=== PATIENT | female | born 1990 | race Caucasian/White ===

== ENCOUNTER 2016-10-24 17:07 | Emergency (ER) | payer OTHER ==
--- NOTE | 2016-10-24 17:29 | PDOC ---
Rapid Medical Evaluation Time Seen by Provider: 10/24/16 17:27 Medical Evaluation: Allergies Allergy/AdvReac Type Severity Reaction Status Date / Time azithromycin [From Zithromax] Allergy Hives Verified 12/05/14 13:17 ciprofloxacin [From Cipro] Allergy Rash Verified 12/05/14 13:17 ciprofloxacin HCl Allergy Rash Verified 12/05/14 13:17 [From Cipro] erythromycin base Allergy Hives Verified 12/05/14 13:17 levofloxacin [From Levaquin] Allergy Verified 12/05/14 13:17 pantoprazole sodium Allergy Hives Verified 12/05/14 13:17 [From Protonix] Penicillins Allergy Hives Verified 12/05/14 13:17 sulfamethoxazole Allergy Hives Verified 12/05/14 13:17 [From Bactrim] tetracycline Allergy Rash Verified 12/05/14 13:17 trimethoprim [From Bactrim] Allergy Hives Verified 12/05/14 13:17 10/24/16 17:27 26 yo F c/o sharp intermittent epigastric cp. Pain exacerbated on deep inspiration, eating and drinking. Pt has a h/o GERD. States it feels different. No recent travels.
[2016-10-24 17:30] VITALS: BMI 29.6
--- NOTE | 2016-10-24 19:26 | PDOC ---
*Physical Exam - Vital Signs Last Vital Signs Temp Pulse Resp BP Pulse Ox 97.9 F 91 H 18 126/73 99 10/24/16 17:27 10/24/16 17:27 10/24/16 17:27 10/24/16 17:27 10/24/16 17:27 Medical Decision Making - Medical Decision Making 10/24/16 19:26 agree with care from DAKOTA Willingham *DC/Admit/Observation/Transfer Diagnosis at time of Disposition: Cough - Referrals Referrals: Hari Welsh [Primary Care Provider] - - Patient Instructions Printed Discharge Instructions: DI for Cough -- Adult Additional Instructions: You can take NyQuil tonight as discussed If this does not get better, follow-up with your doctor later this week You should quit smoking, this is not good for your asthma and then make you sicker Return to the ER if short of breath, fever or getting worse
--- NOTE | 2016-10-24 19:33 | PDOC ---
History of Present Illness - General Chief Complaint: Chest Pain Stated Complaint: CHEST PAIN Time Seen by Provider: 10/24/16 17:27 History Source: Patient Exam Limitations: No Limitations - History of Present Illness Initial Comments: 10/24/16 19:38 Chief complaint: Chest pain Patient 26-year-old female with a history of asthma, GERD states that she's had cough and chest pain for 2 days. No fever. Patient is using her asthma meds at home. Not short of breath and is able to speak clearly. Patient states every time it she coughs her chest hurts. GENERAL/CONSTITUTIONAL: No fever, weakness. dizziness HEAD, EYES, EARS, NOSE AND THROAT: No change in vision. No ear pain or discharge. No sore throat. CARDIOVASCULAR: +chest pain RESPIRATORY: No shortness of breath +cough GASTROINTESTINAL: No pain, nausea, vomiting, diarrhea or constipation GENITOURINARY: No dysuria MUSCULOSKELETAL: No neck or back pain SKIN: No rash NEUROLOGIC: No headache, vertigo, loss of consciousness, or loss of sensation. GENERAL: The patient is awake, alert, and fully oriented, in no acute distress. HEAD: Normal with no signs of trauma. EYES: Pupils equal, round and reactive to light, sclera anicteric, conjunctiva clear. ENT: pharynx: no erythema, no exudate, uvula midline NECK: supple CHEST: clear, + lower sternal tender, rr ABD: soft, nontender EXTREMITIES: Normal range of motion, no edema. NEUROLOGICAL: Normal speech, normal gait. SKIN: Warm, Dry Past History - Past Medical History Allergies/Adverse Reactions: Allergies Allergy/AdvReac Type Severity Reaction Status Date / Time azithromycin [From Zithromax] Allergy Hives Verified 10/24/16 17:31 ciprofloxacin [From Cipro] Allergy Rash Verified 10/24/16 17:31 ciprofloxacin HCl Allergy Rash Verified 10/24/16 17:31 [From Cipro] erythromycin base Allergy Hives Verified 10/24/16 17:31 levofloxacin [From Levaquin] Allergy Verified 10/24/16 17:31 pantoprazole sodium Allergy Hives Verified 10/24/16 17:31 [From Protonix] Penicillins Allergy Hives Verified 10/24/16 17:31 sulfamethoxazole Allergy Hives Verified 10/24/16 17:31 [From Bactrim] tetracycline Allergy Rash Verified 10/24/16 17:31 trimethoprim [From Bactrim] Allergy Hives Verified 10/24/16 17:31 Home Medications: Ambulatory Orders Albuterol Sulfate [Proair Respiclick] 90 mcg IH DAILY 11/16/15 Albuterol Sulfate [Ventolin -] 2 mg PO TID 11/16/15 Budesonide/Formeterol Fumarate [SYMBICORT 160/4.5mcg -] 1 inh PO BID 11/16/15 Buspirone HCl [Buspar -] 20 mg PO TID 10/24/16 Ibuprofen/Famotidine [Duexis 800-26.6 mg Tablet] 1 each PO DAILY 10/24/16 Lurasidone HCl [Latuda] 20 mg PO DAILY 10/24/16 Oxycodone HCl/Acetaminophen [Percocet 10-325 mg Tablet] 1 each PO TID 10/24/16 Oxycodone Sr [Oxycontin] 20 mg PO HS 10/24/16 Asthma: Yes Disorders: Yes (GERD) Psychiatric Problems: Yes (ANXIETY) - Immunization History Immunization Up to Date: Yes - Psycho/Social/Smoking Cessation Hx Anxiety: No Suicidal Ideation: No Smoking History: Current some day smoker Have you smoked in the past 12 months: Yes Number of Cigarettes Smoked Daily: 1 Information on smoking cessation initiated: No Hx Alcohol Use: No Drug/Substance Use Hx: No Substance Use Type: None *Physical Exam - Vital Signs Last Vital Signs Temp Pulse Resp BP Pulse Ox 97.9 F 91 H 18 126/73 99 10/24/16 17:27 10/24/16 17:27 10/24/16 17:27 10/24/16 17:27 10/24/16 17:27 Medical Decision Making - Medical Decision Making 10/24/16 19:41 Patient with history of asthma, using her inhalers at home, states they're not working, patient does not have wheezing in the ER, she's not hypoxic, or wheezing, pain is consistent with coughing and muscular pain. Patient is in no distress and has pain with coughing and is concerned regarding whether she has bronchitis or pneumonia. We'll get a chest x-ray and reassess. No labs are indicated. 10/24/16 20:55 Patient was sleeping comfortably, no respiratory distress, chest x-ray is negative, patient will be discharged home, states she will take NyQuil tonight and then she'll follow-up with her doctor if any other problems *DC/Admit/Observation/Transfer Diagnosis at time of Disposition: Cough - Discharge Dispostion Disposition: HOME Condition at time of disposition: Stable Admit: No - Patient Instructions Printed Discharge Instructions: DI for Cough -- Adult Additional Instructions: You can take NyQuil tonight as discussed If this does not get better, follow-up with your doctor later this week You should quit smoking, this is not good for your asthma and then make you sicker Return to the ER if short of breath, fever or getting worse
[2016-10-24 21:04] VITALS: BP 108/67; PULSE 88; TEMP 98.7
--- NOTE | 2016-10-25 14:10 | EKG ---
Test Reason : Blood Pressure : / mmHG Vent. Rate : 087 BPM Atrial Rate : 087 BPM P-R Int : 122 ms QRS Dur : 088 ms QT Int : 366 ms P-R-T Axes : 063 059 028 degrees QTc Int : 440 ms NORMAL SINUS RHYTHM WITH SINUS ARRHYTHMIA NORMAL ECG WHEN COMPARED WITH ECG OF 16-NOV-2015 15:55, NO SIGNIFICANT CHANGE WAS FOUND Confirmed by SULEIMAN MARR MD ([id number]) on 10/25/2016 2:10:29 PM Referred By: Confirmed By:SULEIMAN MARR MD
== END 2016-10-24 21:04 | disposition home or self-care (01) ==
LOC: JER 17:07
DX: R05 Cough (principal); J45.909 Unspecified asthma, uncomplicated; K21.9 Gastro-esophageal reflux disease without esophagitis; F41.9 Anxiety disorder, unspecified
CPT/HCPCS: 71020-TC; 84703; 93005; 93010; 99282-25

== ENCOUNTER 2017-09-04 08:59 | Inpatient (IN) | payer OTHER ==
[2017-09-04 09:11] VITALS: BMI 28.3
--- NOTE | 2017-09-04 10:24 | PDOC ---
History of Present Illness - General History Source: Patient Exam Limitations: No Limitations - History of Present Illness Initial Comments: 09/04/17 11:06 The patient is a 27 year old female with a significant PMH of spinal arthritis, neurofibromatosis, and duplicated ureter s/p multiple kidney infections who presents to the emergency department with left sided back pain and left side abdominal pain beginning approximately 5 days ago. She describes her back pain as localized in the lower region with associated intermittent spasms, which is aggravated by movement and alleviated by lying down. The patient also notes slight left sided abdominal pain at presentation. She reports taking 3 percocets a day regularly which has not relieved this episode of back pain. She notes her last percocet was about 6 hours ago. The patient notes she cannot take NSAIDS within the next 9 days as she is receiving a biopsy of a left breast mass diagnosed by mammography and US. She reports a family history of cancer (unspecified). The patient denies chest pain, shortness of breath, headache and dizziness. Denies fever, chills, nausea, vomit, diarrhea and constipation. Denies dysuria, frequency, urgency and hematuria. Allergies: Penicillins, Amoxicillin, Azithromycin, Zithromax, Ciprofloxacin, Tetracycline, Protonix, Bactrim, Levaquin. Past surgical history: Breast mass biopsies. Social history: Current some day smoker. Everyday percocet use (3/day for 6 years, prescribed). No reported alcohol use. PCP: Dr. Welsh <Abhi Hill - Last Filed: 09/04/17 16:31> <Malachi Verduzco - Last Filed: 09/04/17 16:43> - General Chief Complaint: Pain Stated Complaint: FLANK PAIN Time Seen by Provider: 09/04/17 10:01 Past History <Abhi Hill - Last Filed: 09/04/17 16:31> - Past Medical History Asthma: Yes COPD: No Disorders: Yes (GERD) Psychiatric Problems: Yes (ANXIETY) Other medical history: MIGRAINES, SPINAL ARTHRITIS, L SIDE DOUBLE URETER., NEUROFIBROMATOSIS - Immunization History Immunization Up to Date: Yes - Suicide/Smoking/Psychosocial Hx Smoking History: Current some day smoker Have you smoked in the past 12 months: Yes Number of Cigarettes Smoked Daily: 3 Information on smoking cessation initiated: No Hx Alcohol Use: No Drug/Substance Use Hx: No Substance Use Type: None <Malachi Verduzco - Last Filed: 09/04/17 16:43> - Past Medical History Allergies/Adverse Reactions: Allergies Allergy/AdvReac Type Severity Reaction Status Date / Time azithromycin [From Zithromax] Allergy Hives Verified 09/04/17 09:12 ciprofloxacin [From Cipro] Allergy Rash Verified 09/04/17 09:12 ciprofloxacin HCl Allergy Rash Verified 09/04/17 09:12 [From Cipro] erythromycin base Allergy Hives Verified 09/04/17 09:12 levofloxacin [From Levaquin] Allergy Verified 09/04/17 09:12 pantoprazole sodium Allergy Hives Verified 09/04/17 09:12 [From Protonix] Penicillins Allergy Hives Verified 09/04/17 09:12 sulfamethoxazole Allergy Hives Verified 09/04/17 09:12 [From Bactrim] tetracycline Allergy Rash Verified 09/04/17 09:12 trimethoprim [From Bactrim] Allergy Hives Verified 09/04/17 09:12 ceftriaxone AdvReac Rash Verified 09/04/17 16:07 Home Medications: Ambulatory Orders Albuterol Sulfate [Ventolin -] 2 mg PO TID 11/16/15 Oxycodone HCl/Acetaminophen [Percocet 10-325 mg Tablet] 1 each PO TID 10/24/16 Baclofen 10 mg PO DAILY 09/04/17 Review of Systems - Review of Systems Able to Perform ROS?: Yes Comments:: 09/04/17 11:07 CONSTITUTIONAL: No fever, no chills, no fatigue EYES: No visual changes ENT: No ear pain, no sore throat CARDIOVASCULAR: No chest pain, no palpitations RESPIRATORY: No cough, no SOB GI: (+) Abdominal pain. no nausea, no vomiting, no constipation, no diarrhea GENITOURINARY: No dysuria, no frequency, no hematuria MUSKULOSKELETAL: (+) Left sided back pain. no joint pain, no myalgias SKIN: No rash NEURO: No headache <Abhi Hill - Last Filed: 09/04/17 16:31> *Physical Exam - Vital Signs Last Vital Signs Temp Pulse Resp BP Pulse Ox 98.2 F 110 H 20 140/73 98 09/04/17 09:03 09/04/17 09:03 09/04/17 09:03 09/04/17 09:03 09/04/17 09:03 - Physical Exam Comments: 09/04/17 16:31 CONSTITUTIONAL: Well-appearing; well-nourished; in no apparent distress HEAD: Normocephalic; atraumatic EYES: PERRL; EOM intact ENMT: External appears normal; normal oropharynx NECK: Supple; non-tender; no cervical lymphadenopathy CARD: Normal S1, S2; no murmurs, rubs, or gallops RESP: Normal chest excursion with respiration; breath sounds clear and equal bilaterally; no wheezes, rhonchi, or rales ABD: Soft, non-distended; non-tender; no palpable organomegaly, no palpable hernias BACK: (+) Left sided CVA tenderness EXT: Normal ROM in all four extremities; non-tender to palpation; distal pulses intact SKIN: Warm, dry, no rash NEURO: No focal neurological deficiencies. <Abhi Hill - Last Filed: 09/04/17 16:31> - Vital Signs Last Vital Signs Temp Pulse Resp BP Pulse Ox 98.2 F 110 H 20 140/73 98 09/04/17 09:03 09/04/17 09:03 09/04/17 09:03 09/04/17 09:03 09/04/17 09:03 <Malachi Verduzco - Last Filed: 09/04/17 16:43> ED Treatment Course - LABORATORY CBC & Chemistry Diagram: 09/04/17 11:15 09/04/17 11:15 - ADDITIONAL ORDERS Additional order review: Laboratory Results 09/04/17 10:14 Urine Color Yellow Urine Appearance Clear Urine pH 5.0 Ur Specific [place] 1.020 Urine Protein Negative Urine Glucose (UA) Negative Urine Ketones Negative Urine Blood 1+ H Urine Nitrite Negative Urine Bilirubin Negative Urine Urobilinogen Negative Ur Leukocyte Esterase 2+ H D Urine WBC (Auto) 27 Urine RBC (Auto) 5 Ur Epithelial Cells Rare Urine Mucus Rare Urine HCG, Qual Negative <Abhi Hill - Last Filed: 09/04/17 16:31> - LABORATORY CBC & Chemistry Diagram: 09/04/17 11:15 09/04/17 11:15 <Malachi Verduzco - Last Filed: 09/04/17 16:43> Medical Decision Making - Medical Decision Making 09/04/17 15:30 The patient developed LUE puritis and erythema immediately upon administration of Ceftriaxone. 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 In the ER, patient is awake and alert, afebrile, with significant left CVA tenderness to percussion. CBC reveals mild leukocytosis with normal differential. CMP is unremarkable. Urinalysis reveals 27 WBCs per high-power field with [address] that and pelvis reveals bilateral intrarenal stones, mild dilation of proximal left ureter without distally obstructing stone and left perinephric stranding. I suspect clinical pyelonephritis. Given patient's multiple ALLERGIES, ceftriaxone was administered. Upon completion of medication , patient developed mild pruritus to the left arm without any respiratory symptoms. Benadryl was administered. Patient will require admission for IV antibiotics due to multiple antibiotic ALLERGIES and parenteral pain control. <Malachi Verduzco - Last Filed: 09/04/17 16:43> *DC/Admit/Observation/Transfer - Attestations Scribe Attestion: 09/04/17 11:07 Documentation prepared by Abhi Hill, acting as medical office representative for Malachi Verduzco MD. <Abhi Hill - Last Filed: 09/04/17 16:31> - Discharge Dispostion Admit: Yes <Malachi Verduzco - Last Filed: 09/04/17 16:43> Diagnosis at time of Disposition: Pyelonephritis - Discharge Dispostion Condition at time of disposition: Fair - Referrals Referrals: Hari Welsh [Primary Care Provider] - - Patient Instructions - Post Discharge Activity
[2017-09-04 10:43] LABS: URINE APPEARANCE CLEAR; URINE BILIRUBIN NEGATIVE (NEGATIVE); URINE BLOOD 1+ (NEGATIVE); URINE COLOR YELLOW; URINE GLUCOSE (UA) NEGATIVE (NEGATIVE); URINE KETONE NEGATIVE (NEGATIVE); URINE NITRITE NEGATIVE (NEGATIVE); URINE PROTEIN NEGATIVE (NEGATIVE); URINE UROBILINOGEN NEGATIVE mg/dL (0.2-1.0)
[2017-09-04 10:44] LABS: HCG,QUALITATIVE URINE NEGATIVE
[2017-09-04 10:46] LABS: URINE LEUK ESTERASE 2+ (NEGATIVE)
[2017-09-04 10:49] LABS: EPI CELLS RARE /HPF (FEW); URINE MUCUS RARE
[2017-09-04] MEDS ORDERED: morphine CARPU-JECT 4 MG/1 ML DISP.SYRIN IVPUSH ONE (10:53)
[2017-09-04] MEDS ORDERED: SODIUM CHLORIDE 1,000 ML IV STA (10:53)
[2017-09-04] MEDS ORDERED: morphine CARPU-JECT 10 MG/1 ML DISP.SYRIN ONE ×2 (11:17→15:11)
[2017-09-04 11:25] LABS: BASO % 0.2 % (0-2.0); EOS % 0.4 % (0-4.5); HEMATOCRIT 46.1 % (32.4-45.2); HEMOGLOBIN 14.8 GM/dL (10.7-15.3); LYMPH % 15.8 % (8-40); MCHC 32.2 g/dl (32.0-36.0); MEAN CELL VOLUME 90.1 fl (80-96); MEAN PLT VOLUME 8.7 fl (7.5-11.1); MONO % 13.2 % (3.8-10.2); NEUT % 70.4 % (42.8-82.8); PLATELET COUNT 242 K/MM3 (134-434); RBC 5.12 M/mm3 (3.60-5.2); RDW 13.5 % (11.6-15.6)
[2017-09-04 11:51] LABS: ALK PHOS 78 U/L (45-117); ANION GAP 5 (8-16); BILIRUBIN,TOTAL 0.5 mg/dL (0.2-1.0); BLOOD UREA NITROGEN 12 mg/dL (7-18); CALCIUM 9.3 mg/dL (8.5-10.1); CHLORIDE 102 mmol/L (98-107); CO2 28 mmol/L (21-32); CREATININE 0.9 mg/dL (0.55-1.02); GLUCOSE,RANDOM 78 mg/dL (74-106); POTASSIUM 4.9 mmol/L (3.5-5.1); SGOT/AST 7 U/L (15-37); SGPT/ALT 17 U/L (12-78); SODIUM 135 mmol/L (136-145); TOT PROT 7.8 g/dl (6.4-8.2)
[2017-09-04] MEDS ORDERED: CEFTRIAXONE 1 GM in DEXTROSE 5%-WATER - 50 ML IVPB ONE (14:55)
[2017-09-04] MEDS ORDERED: morphine CARPU-JECT 2 MG/1 ML DISP.SYRIN IVPUSH ONE (14:57)
[2017-09-04] MEDS ORDERED: EPINEPHrine/PF 1 MG/1 ML (1:1,000) AMPULE ONE (14:59)
[2017-09-04] MEDS ORDERED: methylPREDNISolone NA SUCC 125 MG/2 ML VIAL ONE (15:00)
[2017-09-04] MEDS ORDERED: CEFTRIAXONE 1 GM/50 ML BAG ONE (15:00)
--- NOTE | 2017-09-04 16:29 | HP ---
Admitting History and Physical - Primary Care Physician PCP: Hari Welsh - Admission Chief Complaint: Left flank pain History of Present Illness: HPI This is a 27 year old female with PMHx of spinal arthritis, neurofibromatosis, and duplicated ureter s/p multiple kidney infections who presented to the ED with left side back pain referring to abdomen x 5 days worsen with movement. Normally she takes 3 percocets daily for above medical issues and this did not alleviate the pain. Of note: she cannot take NSAIDs as she is scheduled for a left breast biopsy in the next 9 days. Currently, denies chest pain, sob. Still has L flank pain with movement, no fevers, no nausea. In ED given ceftriaxone, within 5 min (per pt) LUE red with hives, given benadryl and hives resolved, denies sob difficulty breathing History Source: Patient Limitations to Obtaining History: No Limitations - Past Medical History Rheumatology: Yes: Other (spinal arthritis, neurofibromatosis) - Smoking History Smoking history: Current some day smoker Have you smoked in the past 12 months: Yes Aproximately how many cigarettes per day: 3 - Alcohol/Substance Use Hx Alcohol Use: No History of Substance Use: reports: None - Social History Usual Living Arrangement: Yes: With Parent ADL: Independent Home Medications - Allergies Allergies/Adverse Reactions: Allergies Allergy/AdvReac Type Severity Reaction Status Date / Time azithromycin [From Zithromax] Allergy Hives Verified 09/04/17 09:12 ciprofloxacin [From Cipro] Allergy Rash Verified 09/04/17 09:12 ciprofloxacin HCl Allergy Rash Verified 09/04/17 09:12 [From Cipro] erythromycin base Allergy Hives Verified 09/04/17 09:12 levofloxacin [From Levaquin] Allergy Verified 09/04/17 09:12 pantoprazole sodium Allergy Hives Verified 09/04/17 09:12 [From Protonix] Penicillins Allergy Hives Verified 09/04/17 09:12 sulfamethoxazole Allergy Hives Verified 09/04/17 09:12 [From Bactrim] tetracycline Allergy Rash Verified 09/04/17 09:12 trimethoprim [From Bactrim] Allergy Hives Verified 09/04/17 09:12 ceftriaxone AdvReac Rash Verified 09/04/17 16:07 - Home Medications Home Medications: Ambulatory Orders Albuterol Sulfate [Ventolin -] 2 mg PO TID 11/16/15 Oxycodone HCl/Acetaminophen [Percocet 10-325 mg Tablet] 1 each PO TID 10/24/16 Baclofen 10 mg PO DAILY 09/04/17 Review of Systems - Review of Systems Constitutional: reports: No Symptoms Eyes: reports: No Symptoms HENT: reports: No Symptoms Neck: reports: No Symptoms Cardiovascular: reports: No Symptoms Respiratory: reports: No Symptoms Gastrointestinal: reports: Abdominal Pain Genitourinary: reports: Flank Pain (left) Breasts: reports: Skin Changes Musculoskeletal: reports: Back Pain Integumentary: reports: No Symptoms Neurological: reports: No Symptoms Endocrine: reports: No Symptoms Hematology/Lymphatic: reports: No Symptoms Psychiatric: reports: No Symptoms Physical Examination Vital Signs: Vital Signs Temperature 98.6 F 09/04/17 15:00 Pulse Rate 86 09/04/17 15:00 Respiratory Rate 20 09/04/17 15:00 Blood Pressure 108/57 09/04/17 15:00 O2 Sat by Pulse Oximetry (%) 98 09/04/17 15:00 Constitutional: Yes: Well Nourished Eyes: Yes: Conjunctiva Clear HENT: Yes: Atraumatic Neck: Yes: Supple Cardiovascular: Yes: Regular Rate and Rhythm, S1, S2 Respiratory: Yes: Regular, CTA Bilaterally Gastrointestinal: Yes: Normal Bowel Sounds, Soft Renal/: Yes: CVA Tenderness - Left Edema: No Neurological: Yes: Alert, Oriented, Cran Nerves II-XII Intact ...Motor Strength: WNL Psychiatric: Yes: Alert, Oriented Labs: CBC, BMP 09/04/17 11:15 09/04/17 11:15 Imaging - Results Cat Scan: Report Reviewed (5mm non obstructing stone) Problem List - Problems (1) Neurofibromatosis Code(s): Q85.00 - NEUROFIBROMATOSIS, UNSPECIFIED (2) Spinal arthritis Code(s): M46.90 - UNSPECIFIED INFLAMMATORY SPONDYLOPATHY, SITE UNSPECIFIED (3) UTI (urinary tract infection) Code(s): N39.0 - URINARY TRACT INFECTION, SITE NOT SPECIFIED (4) Renal stone Code(s): N20.0 - CALCULUS OF KIDNEY (5) Renal calculus, left Code(s): N20.0 - CALCULUS OF KIDNEY (6) Renal calculus, right Code(s): N20.0 - CALCULUS OF KIDNEY Assessment/Plan Assessment: 27 year old female admitted with L flank pain, UTI Plan: 1. Sepsis - Due to UTI and renal stones - Erythema to arm with ceftriaxone - Spoke with ID will see patient - Blood/urine cx pending 2. Non obstructing R and L ureter renal stones - D/w urology, possibly unseen obstructing stone on CTAP - Will need to go to OR urgently for L sided stent insertion - NPO - Start NS @100cc/hr 3. UTI - ABX per ID - Urine cx pending Visit type - Emergency Visit Emergency Visit: Yes Care time: The patient presented to the Emergency Department on the above date and was hospitalized for further evaluation of their emergent condition. - New Patient This patient is new to me today: Yes Date on this admission: 09/04/17 - Critical Care Critical Care patient: No
[2017-09-04] MEDS ORDERED: morphine CARPU-JECT 10 MG/1 ML DISP.SYRIN IVPUSH PRN (16:54)
[2017-09-04] MEDS ORDERED: ONDANSETRON 4 MG/2 ML VIAL IVPUSH PRN ×2 (17:00→18:49)
[2017-09-04] MEDS: SODIUM CHLORIDE 1,000 ML IV SCH ×2 (17:06→19:50)
--- NOTE | 2017-09-04 17:26 | CON.ID ---
Consult Consult Specialty:: infectious diseases Reason for Consultation:: uti,pyelo,obstruction - History of Present Illness Chief Complaint: pain in the left flank History of Present Illness: 27 year old with 5 days of left sided flank and subjective fevers and chills at home who presents to [facility]. patiewnt coming in with s/o sepsis with leukocytosis, tachycardia and low systolic blood pressure and uti. CT reveals bilateral renal calculi with left sided perinephric stranding and hydroureter. 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 A calcification is seen at the bladder which appears consistent with an obstructing stone of her lower ureter. patient was given ceftriaxone on which she developed rash patient was seen by urology and patient is being taken to the operating room for intervention by urology patient has h/o of neurofibromatosis - History Source History Provided By: Patient Limitations to Obtaining History: No Limitations - Past Medical History Rheumatology: Yes: Other (spinal arthritis, neurofibromatosis) - Alcohol/Substance Use Hx Alcohol Use: No History of Substance Use: reports: None - Smoking History Smoking history: Current some day smoker Have you smoked in the past 12 months: Yes Aproximately how many cigarettes per day: 3 - Social History ADL: Independent Home Medications - Allergies Allergies/Adverse Reactions: Allergies Allergy/AdvReac Type Severity Reaction Status Date / Time azithromycin [From Zithromax] Allergy Hives Verified 09/04/17 09:12 ciprofloxacin [From Cipro] Allergy Rash Verified 09/04/17 09:12 ciprofloxacin HCl Allergy Rash Verified 09/04/17 09:12 [From Cipro] erythromycin base Allergy Hives Verified 09/04/17 09:12 levofloxacin [From Levaquin] Allergy Verified 09/04/17 09:12 pantoprazole sodium Allergy Hives Verified 09/04/17 09:12 [From Protonix] Penicillins Allergy Hives Verified 09/04/17 09:12 sulfamethoxazole Allergy Hives Verified 09/04/17 09:12 [From Bactrim] tetracycline Allergy Rash Verified 09/04/17 09:12 trimethoprim [From Bactrim] Allergy Hives Verified 09/04/17 09:12 ceftriaxone AdvReac Rash Verified 09/04/17 16:07 - Home Medications Home Medications: Ambulatory Orders Albuterol Sulfate [Ventolin -] 2 mg PO TID 11/16/15 Oxycodone HCl/Acetaminophen [Percocet 10-325 mg Tablet] 1 each PO TID 10/24/16 Baclofen 10 mg PO DAILY 09/04/17 Review of Systems - Review of Systems Constitutional: reports: Chills, Fever Eyes: reports: No Symptoms HENT: reports: No Symptoms Neck: reports: No Symptoms Cardiovascular: reports: No Symptoms Respiratory: reports: No Symptoms Gastrointestinal: reports: No Symptoms Genitourinary: reports: Flank Pain (left) Musculoskeletal: reports: No Symptoms Integumentary: reports: No Symptoms Neurological: reports: No Symptoms Endocrine: reports: No Symptoms Hematology/Lymphatic: reports: No Symptoms Physical Exam Vital Signs: Vital Signs Temperature 98.6 F 09/04/17 15:00 Pulse Rate 86 09/04/17 15:00 Respiratory Rate 20 09/04/17 15:00 Blood Pressure 108/57 09/04/17 15:00 O2 Sat by Pulse Oximetry (%) 98 09/04/17 15:00 Constitutional: Yes: Calm, Moderate Distress Eyes: Yes: Conjunctiva Clear Cardiovascular: Yes: Regular Rate and Rhythm Respiratory: Yes: Regular, CTA Bilaterally Gastrointestinal: Yes: Normal Bowel Sounds, Soft Renal/: Yes: CVA Tenderness - Left Musculoskeletal: Yes: WNL Extremities: Yes: WNL Neurological: Yes: Alert, Oriented Psychiatric: Yes: Alert, Oriented Labs: CBC, BMP 09/04/17 11:15 09/04/17 11:15 Assessment/Plan Problem List - Problems (1) Duplicated left renal collecting system Code(s): Q62.5 - DUPLICATION OF URETER (2) UTI (urinary tract infection) Code(s): N39.0 - URINARY TRACT INFECTION, SITE NOT SPECIFIED (3) Hydroureter on left Assessment/Plan: she meets sepsis criteria. She appears to have an obstructing stone in the distal left lower ureter. She needs emergent stenting. She has not been NPO for six hours but the risk of sepsis, hypotension and are great enough that this procedure needs to be done [place]. Code(s): N13.4 - HYDROURETER (4) Bilateral nephrolithiasis Code(s): N20.0 - CALCULUS OF KIDNEY plan as per urology to give one dose of meropenam post procedure watch closely in the PACU will continue meropenam rest as per primary and urology close watch for any reaction
[2017-09-04] MEDS ORDERED: ePHEDrine SULFATE 50 MG/1 ML AMPULE ONE (17:41)
[2017-09-04] MEDS ORDERED: LIDOCAINE HCL/PF 2% SDV 5ML VIAL ONE (17:41)
[2017-09-04] MEDS ORDERED: fentaNYL CITRATE 250 MCG/5 ML VIAL ONE (17:42)
[2017-09-04] MEDS ORDERED: PROPOFOL 20 ML ONE (17:42)
[2017-09-04] MEDS ORDERED: DEXAMETHASONE SOD PHOSPHATE 4 MG/1 ML VIAL ONE (17:42)
[2017-09-04] MEDS ORDERED: ONDANSETRON 4 MG/2 ML VIAL ONE (17:45)
--- NOTE | 2017-09-04 17:50 | CON.GU ---
Consult Consult Specialty:: Referred by:: ED Reason for Consultation:: sepsis, flank pain, nephrolithiasis - History of Present Illness Chief Complaint: sepsis, flank pain, nephrolithiasis History of Present Illness: 27 year old with 5 days of left sided flank and subjective fevers and chills at home who presents to [facility]. She has leukocytosis, tachycardia and low systolic blood pressure and suspected UTI meeting sepsis criteria. CT reveals bilateral renal calculi with left sided perinephric stranding and hydroureter. 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 A calcification is seen at the bladder which appears consistent with an obstructing stone of her lower ureter. - History Source History Provided By: Patient, Medical Record Limitations to Obtaining History: No Limitations - Past Medical History [employer]: No: Alzheimer's, CVA, Dementia, Migraine, Multiple Sclerosis, Peripheral Neuropathy, Parkinson's, Seizure, Syncope, TIA, Vertigo, Other Renal/: Yes: UTI Rheumatology: Yes: Other (spinal arthritis, neurofibromatosis) - Alcohol/Substance Use Hx Alcohol Use: No History of Substance Use: reports: None - Smoking History Smoking history: Current some day smoker Have you smoked in the past 12 months: Yes Aproximately how many cigarettes per day: 3 - Social History ADL: Independent Home Medications - Allergies Allergies/Adverse Reactions: Allergies Allergy/AdvReac Type Severity Reaction Status Date / Time azithromycin [From Zithromax] Allergy Hives Verified 09/04/17 09:12 ciprofloxacin [From Cipro] Allergy Rash Verified 09/04/17 09:12 ciprofloxacin HCl Allergy Rash Verified 09/04/17 09:12 [From Cipro] erythromycin base Allergy Hives Verified 09/04/17 09:12 levofloxacin [From Levaquin] Allergy Verified 09/04/17 09:12 pantoprazole sodium Allergy Hives Verified 09/04/17 09:12 [From Protonix] Penicillins Allergy Hives Verified 09/04/17 09:12 sulfamethoxazole Allergy Hives Verified 09/04/17 09:12 [From Bactrim] tetracycline Allergy Rash Verified 09/04/17 09:12 trimethoprim [From Bactrim] Allergy Hives Verified 09/04/17 09:12 ceftriaxone AdvReac Rash Verified 09/04/17 16:07 - Home Medications Home Medications: Ambulatory Orders Albuterol Sulfate [Ventolin -] 2 mg PO TID 11/16/15 Oxycodone HCl/Acetaminophen [Percocet 10-325 mg Tablet] 1 each PO TID 10/24/16 Baclofen 10 mg PO DAILY 09/04/17 Review of Systems - Review of Systems Constitutional: reports: Chills, Fever, Lethargy, Loss of Appetite, Weakness Genitourinary: reports: Flank Pain, Frequency, Pain Physical Exam- Vital Signs: Vital Signs Temperature 98.6 F 09/04/17 15:00 Pulse Rate 86 09/04/17 15:00 Respiratory Rate 20 09/04/17 15:00 Blood Pressure 108/57 09/04/17 15:00 O2 Sat by Pulse Oximetry (%) 98 09/04/17 15:00 Renal/: Yes: CVA Tenderness - Left. No: Bladder Distention, CVA Tenderness - Right, Nye Present, Hematuria, Incontinence Labs: CBC, BMP 09/04/17 11:15 09/04/17 11:15 Imaging - Results Cat Scan: Image Reviewed Problem List - Problems (1) Duplicated left renal collecting system Code(s): Q62.5 - DUPLICATION OF URETER (2) UTI (urinary tract infection) Code(s): N39.0 - URINARY TRACT INFECTION, SITE NOT SPECIFIED (3) Hydroureter on left Assessment/Plan: she meets sepsis criteria. She appears to have an obstructing stone in the distal left lower ureter. She needs emergent stenting. She has not been NPO for six hours but the risk of sepsis, hypotension and are great enough that this procedure needs to be done [place]. Code(s): N13.4 - HYDROURETER (4) Bilateral nephrolithiasis Code(s): N20.0 - CALCULUS OF KIDNEY
[2017-09-04] MEDS ORDERED: PROMETHAZINE HCL 25 MG/1 ML VIAL IVPUSH PRN (18:49)
[2017-09-04] MEDS ORDERED: ELECTROLYTE-148 SOLN 1,000 ML IV SCH (19:00)
[2017-09-04] MEDS: MEROPENEM 1 GM PUSH 1 GM/20 ML DISP.SYRIN IVPUSH SCH (19:50)
[2017-09-04] MEDS ORDERED: HYDROmorphone HCL CARPU-JECT 2 MG/1 ML DISP.SYRIN ONE (20:08)
[2017-09-04] MEDS: HYDROmorphone HCL CARPU-JECT 1 MG/1 ML DISP.SYRIN IVPB PRN ×2 (20:11→23:30)
[2017-09-05] MEDS: MEROPENEM 1 GM PUSH 1 GM/20 ML DISP.SYRIN IVPUSH SCH ×3 (01:24→17:48)
[2017-09-05] MEDS ORDERED: MEROPENEM 1 GM PUSH 1 GM/20 ML DISP.SYRIN IVPUSH SCH (02:00)
[2017-09-05] MEDS: HYDROmorphone HCL CARPU-JECT 1 MG/1 ML DISP.SYRIN IVPB PRN ×3 (03:18→09:48)
[2017-09-05] MEDS: SODIUM CHLORIDE 1,000 ML IV SCH ×4 (06:18→16:01)
[2017-09-05] MEDS: HEPARIN NA (PORCINE) 5,000 UNITS/ML 1ML VIAL SQ SCH ×3 (06:19→21:38)
[2017-09-05 08:23] LABS: BASO % 0.3 % (0-2.0); EOS % 0.1 % (0-4.5); HEMATOCRIT 40.3 % (32.4-45.2); HEMOGLOBIN 13.2 GM/dL (10.7-15.3); LYMPH % 13.3 % (8-40); MCH 29.1 pg (25.7-33.7); MCHC 32.8 g/dl (32.0-36.0); MEAN CELL VOLUME 88.7 fl (80-96); MEAN PLT VOLUME 8.7 fl (7.5-11.1); MONO % 8.7 % (3.8-10.2); NEUT % 77.6 % (42.8-82.8); PLATELET COUNT 234 K/MM3 (134-434); RBC 4.54 M/mm3 (3.60-5.2); RDW 13.3 % (11.6-15.6); WHITE BLOOD COUNT 13.8 K/mm3 (4.0-10.0)
[2017-09-05 08:47] LABS: CHLORIDE 107 mmol/L (98-107); POTASSIUM 4.3 mmol/L (3.5-5.1); SODIUM 137 mmol/L (136-145)
[2017-09-05 09:14] LABS: ALBUMIN 3.5 g/dl (3.4-5.0); ALK PHOS 65 U/L (45-117); ANION GAP 10 (8-16); BILIRUBIN,TOTAL 0.5 mg/dL (0.2-1.0); BLOOD UREA NITROGEN 7 mg/dL (7-18); CALCIUM 8.8 mg/dL (8.5-10.1); CO2 20 mmol/L (21-32); CREATININE 0.6 mg/dL (0.55-1.02); GLUCOSE,RANDOM 105 mg/dL (74-106); SGOT/AST 5 U/L (15-37); SGPT/ALT 15 U/L (12-78)
--- NOTE | 2017-09-05 09:31 | OP ---
DATE OF OPERATION: 09/04/2017 SURGEON: Rebel Vences MD PREOPERATIVE DIAGNOSIS: Sepsis, left-sided renal colic, left hydroureter, and left renal calculus. POSTOPERATIVE DIAGNOSIS: Sepsis, left-sided renal colic, left hydroureter, and left renal calculus. PROCEDURE: Cystoscopy, left-sided retrograde pyelograms x2, and left-sided ureteral stents x2. 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 ESTIMATED BLOOD LOSS: Minimal. DRAINS: A 26 x 6 ureteral stent in the upper pole ureter and a 24 x 6 double-J ureteral stent in the lower pole ureter. FINDINGS: What appears to be infected purulent urine coming from the upper pole ureter. Nye catheter also left in place. SPECIMENS: None. PREOPERATIVE INDICATIONS: The patient is a 27-year-old female who comes to the ER with 5 days of severe left-sided flank pain, subjective fevers at home. She is noted to have leukocytosis, tachycardia, hypotension, and urine suspicious for a UTI in the emergency room. CT scan reveals duplicated system with a nonobstructing stone in the kidney, however, which is the lower pole moiety, but she has what appears to be hydroureter along the upper pole moiety and a calcification which is either a phlebolith or within the UVJ of the upper pole ureter. Decision was made based on sepsis criteria with a potential obstructing stone that she have emergent ureteral stenting done. Risks, benefits, and alternatives were discussed with the patient. She agrees to the procedure. THE OPERATION: The patient was brought to the OR, placed on the table in the supine position, given general anesthesia. Patient received IV antibiotics prior to coming to the OR. The groin was prepped and draped sterilely. Time-out was performed. Cystoscopy was performed. Patient had a tight urethral meatus, which was dilated with the scope. In the bladder, there were two ureteral orifices noted on the left side. The ureteral orifice more distal, closer to the urethra, was intubated with a wire, and an open-ended catheter retrograde pyelogram was performed, which did reveal some obstruction, and as predicted, this was the upper pole moiety. A 6 x 26 double-J ureteral stent was left in place under fluoroscopic guidance. The wire was then placed up the more proximal ureteral orifice, which would be expected to correspond to the lower pole moiety as it was. Retrograde pyelogram was performed. No hydronephrosis was noted. A 6 x 24 double-J ureteral stent was left . Purulent urine was seen coming from the upper pole moiety ureter, which was the more distal ureteral orifice. Nye catheter was left in place. The patient was woken up. Bea [id number]
[2017-09-05] MEDS: BACLOFEN 10 MG TABLET (FP) PO SCH (09:52)
--- NOTE | 2017-09-05 10:55 | PN ---
Progress Note, Physician Chief Complaint: AWAKE ALERT IN MODERATE DISTRESS - Current Medication List Current Medications: Active Medications Baclofen (Lioresal -) 10 mg PO DAILY [facility] Last Admin: 09/05/17 09:52 Dose: 10 mg Heparin Sodium (Porcine) (Heparin -) 5,000 unit SQ TID [facility] Last Admin: 09/05/17 06:19 Dose: 5,000 unit Hydromorphone HCl (Dilaudid Injection -) 0.5 mg IVPB Q3H PRN Last Admin: 09/05/17 09:48 Dose: 0.5 mg Meropenem (Merrem (Restricted To Id) -) 1 gm in 20 mls @ 240 mls/hr IVPUSH Q8H- IV JUSTINE PRN Reason: Protocol Last Admin: 09/05/17 10:28 Dose: 240 mls/hr Sodium Chloride (Normal Saline -) 1,000 mls @ 125 mls/hr IV ASDIR [facility] Last Admin: 09/05/17 06:24 Dose: 125 mls/hr Ondansetron HCl (Zofran Injection) 4 mg IVPUSH Q6H PRN PRN Reason: NAUSEA Ondansetron HCl (Zofran Injection) 4 mg IVPUSH Q6H PRN PRN Reason: NAUSEA AND/OR VOMITING Promethazine HCl (Phenergan Injection -) 12.5 mg IVPUSH Q6H PRN PRN Reason: NAUSEA-FOR RESCUE AFTER 15 MIN - Objective Vital Signs: Vital Signs Temperature 98.5 F 09/05/17 05:48 Pulse Rate 60 09/05/17 05:48 Respiratory Rate 18 09/05/17 05:48 Blood Pressure 117/59 09/05/17 05:48 O2 Sat by Pulse Oximetry (%) 97 09/04/17 22:00 Constitutional: Yes: Moderate Distress Eyes: Yes: WNL HENT: Yes: WNL Neck: Yes: WNL Cardiovascular: Yes: WNL Respiratory: Yes: WNL Gastrointestinal: Yes: WNL Genitourinary: Yes: CVA Tenderness - Left, CVA Tenderness - Right Musculoskeletal: Yes: Back Pain Extremities: Yes: WNL Edema: No Peripheral Pulses WNL: Yes Integumentary: Yes: WNL Wound/Incision: Yes: Clean/Dry Neurological: Yes: WNL ...Motor Strength: WNL Psychiatric: Yes: WNL Labs: CBC, BMP 09/05/17 07:00 09/05/17 07:00 Problem List - Problems (1) Bilateral nephrolithiasis Code(s): N20.0 - CALCULUS OF KIDNEY (2) Duplicated left renal collecting system Code(s): Q62.5 - DUPLICATION OF URETER (3) Hydroureter on left Code(s): N13.4 - HYDROURETER (4) Renal calculus, left Code(s): N20.0 - CALCULUS OF KIDNEY (5) Renal calculus, right Code(s): N20.0 - CALCULUS OF KIDNEY (6) Renal stone Code(s): N20.0 - CALCULUS OF KIDNEY Assessment/Plan S/P URETRAL STENT IV ABX PAIN CONTROL IVF
--- NOTE | 2017-09-05 12:38 | PN ---
Progress Note, Physician History of Present Illness: patient stable still with lot pf pain and burning in the urine wbc still on the higher side - Current Medication List Current Medications: Active Medications Baclofen (Lioresal -) 10 mg PO DAILY [facility] Last Admin: 09/05/17 09:52 Dose: 10 mg Docusate Sodium (Colace -) 300 mg PO HS [facility] Heparin Sodium (Porcine) (Heparin -) 5,000 unit SQ TID [facility] Last Admin: 09/05/17 06:19 Dose: 5,000 unit Hydromorphone HCl (Dilaudid Injection -) 1 mg IVPB Q4H PRN PRN Reason: BACK PAIN Meropenem (Merrem (Restricted To Id) -) 1 gm in 20 mls @ 240 mls/hr IVPUSH Q8H- IV JUSTINE PRN Reason: Protocol Last Admin: 09/05/17 10:28 Dose: 240 mls/hr Sodium Chloride (Normal Saline -) 1,000 mls @ 125 mls/hr IV ASDIR [facility] Last Admin: 09/05/17 06:24 Dose: 125 mls/hr Methylnaltrexone [place] (Relistor -) 12 mg SQ DAILY [facility] Ondansetron HCl (Zofran Injection) 4 mg IVPUSH Q6H PRN PRN Reason: NAUSEA Ondansetron HCl (Zofran Injection) 4 mg IVPUSH Q6H PRN PRN Reason: NAUSEA AND/OR VOMITING Oxycodone HCl (Roxicodone -) 5 mg PO Q6H PRN PRN Reason: PAIN LEVEL 6-10 Promethazine HCl (Phenergan Injection -) 12.5 mg IVPUSH Q6H PRN PRN Reason: NAUSEA-FOR RESCUE AFTER 15 MIN - Objective Vital Signs: Vital Signs Temperature 98.5 F 09/05/17 05:48 Pulse Rate 60 09/05/17 05:48 Respiratory Rate 18 09/05/17 05:48 Blood Pressure 117/59 09/05/17 05:48 O2 Sat by Pulse Oximetry (%) 97 09/04/17 22:00 Constitutional: Yes: Calm, Moderate Distress Cardiovascular: Yes: Regular Rate and Rhythm Respiratory: Yes: Regular, CTA Bilaterally Gastrointestinal: Yes: Normal Bowel Sounds, Soft Genitourinary: Yes: CVA Tenderness - Left Musculoskeletal: Yes: WNL Extremities: Yes: WNL Neurological: Yes: Alert, Oriented Psychiatric: Yes: Alert, Oriented Labs: CBC, BMP 09/05/17 07:00 09/05/17 07:00 Assessment/Plan Problem List - Problems (1) Duplicated left renal collecting system Code(s): Q62.5 - DUPLICATION OF URETER (2) UTI (urinary tract infection) Code(s): N39.0 - URINARY TRACT INFECTION, SITE NOT SPECIFIED (3) Hydroureter on left Code(s): N13.4 - HYDROURETER (4) Bilateral nephrolithiasis Code(s): N20.0 - CALCULUS OF KIDNEY plan continue meropenam continue hydration rest as per urology and primary
[2017-09-05] MEDS: oxyCODONE HCL 5 MG TABLET PO PRN ×2 (12:39→17:47)
[2017-09-05] MEDS: Methylnaltrexone Bromide 12 MG/0.6 ML KIT SQ SCH (13:36)
[2017-09-05] MEDS: HYDROmorphone HCL CARPU-JECT 2 MG/1 ML DISP.SYRIN IVPB PRN ×2 (15:27→20:11)
--- NOTE | 2017-09-05 17:42 | PN ---
Progress Note, Physician Chief Complaint: Pt. pain controlled, no GA complaints. - Current Medication List Current Medications: Active Medications Baclofen (Lioresal -) 10 mg PO DAILY [facility] Last Admin: 09/05/17 09:52 Dose: 10 mg Docusate Sodium (Colace -) 300 mg PO HS [facility] Heparin Sodium (Porcine) (Heparin -) 5,000 unit SQ TID [facility] Last Admin: 09/05/17 13:36 Dose: 5,000 unit Hydromorphone HCl (Dilaudid Injection -) 1 mg IVPB Q4H PRN PRN Reason: BACK PAIN Last Admin: 09/05/17 15:27 Dose: 1 mg Meropenem (Merrem (Restricted To Id) -) 1 gm in 20 mls @ 240 mls/hr IVPUSH Q8H- IV JUSTINE PRN Reason: Protocol Last Admin: 09/05/17 10:28 Dose: 240 mls/hr Sodium Chloride (Normal Saline -) 1,000 mls @ 125 mls/hr IV ASDIR [facility] Last Admin: 09/05/17 16:01 Dose: 125 mls/hr Methylnaltrexone [place] (Relistor -) 12 mg SQ DAILY [facility] Last Admin: 09/05/17 13:36 Dose: 12 mg Ondansetron HCl (Zofran Injection) 4 mg IVPUSH Q6H PRN PRN Reason: NAUSEA Ondansetron HCl (Zofran Injection) 4 mg IVPUSH Q6H PRN PRN Reason: NAUSEA AND/OR VOMITING Oxycodone HCl (Roxicodone -) 5 mg PO Q6H PRN PRN Reason: PAIN LEVEL 6-10 Last Admin: 09/05/17 12:39 Dose: 5 mg Promethazine HCl (Phenergan Injection -) 12.5 mg IVPUSH Q6H PRN PRN Reason: NAUSEA-FOR RESCUE AFTER 15 MIN - Objective Vital Signs: Vital Signs Temperature 98.3 F 09/05/17 14:35 Pulse Rate 95 H 09/05/17 14:35 Respiratory Rate 20 09/05/17 14:35 Blood Pressure 117/55 09/05/17 14:35 O2 Sat by Pulse Oximetry (%) 97 09/04/17 22:00 Constitutional: Yes: Well Nourished, No Distress, Calm Musculoskeletal: Yes: WNL Neurological: Yes: WNL, Alert, Oriented ...Motor Strength: WNL Labs: CBC, BMP 09/05/17 07:00 09/05/17 07:00 Assessment/Plan POD#1 s/p Cystoscopy and Left uteroscopy with stent placement x 2. Doing well. D/C from anesthesia care.
[2017-09-05] MEDS ORDERED: DOCUSATE SODIUM 100 MG CAPSULE (FP) PO SCH (22:00)
[2017-09-06] MEDS: HYDROmorphone HCL CARPU-JECT 2 MG/1 ML DISP.SYRIN IVPB PRN ×3 (00:04→10:49)
[2017-09-06] MEDS: SODIUM CHLORIDE 1,000 ML IV SCH ×2 (00:05→11:01)
[2017-09-06] MEDS: oxyCODONE HCL 5 MG TABLET PO PRN ×2 (02:58→12:55)
[2017-09-06] MEDS: MEROPENEM 1 GM PUSH 1 GM/20 ML DISP.SYRIN IVPUSH SCH (03:08)
[2017-09-06] MEDS: HEPARIN NA (PORCINE) 5,000 UNITS/ML 1ML VIAL SQ SCH ×2 (06:08→14:30)
--- NOTE | 2017-09-06 10:38 | PN ---
Progress Note (short form) - Note Progress Note: Patient reports that her flank pain is resolved but she has pain with urination Afebrile VSS abd- soft. Imp- Sepsis obstructing stone positive urine cultures await sensitivities and outpatient antibiotics as per ID Problem List - Problems (1) Duplicated left renal collecting system Code(s): Q62.5 - DUPLICATION OF URETER (2) UTI (urinary tract infection) Code(s): N39.0 - URINARY TRACT INFECTION, SITE NOT SPECIFIED (3) Hydroureter on left Code(s): N13.4 - HYDROURETER (4) Bilateral nephrolithiasis Code(s): N20.0 - CALCULUS OF KIDNEY
[2017-09-06] MEDS ORDERED: PT OWN MED DRAWER 7, Y5N ONE ×4 (10:47→18:09)
[2017-09-06] MEDS: BACLOFEN 10 MG TABLET (FP) PO SCH (10:49)
--- NOTE | 2017-09-06 11:38 | PN ---
Progress Note, Physician History of Present Illness: patient better still c/o of pain mentions that burning better - Current Medication List Current Medications: Active Medications Baclofen (Lioresal -) 10 mg PO DAILY [facility] Last Admin: 09/06/17 10:49 Dose: 10 mg Docusate Sodium (Colace -) 300 mg PO HS [facility] Last Admin: 09/05/17 21:37 Dose: 300 mg Heparin Sodium (Porcine) (Heparin -) 5,000 unit SQ TID [facility] Last Admin: 09/06/17 06:08 Dose: 5,000 unit Hydromorphone HCl (Dilaudid Injection -) 1 mg IVPB Q4H PRN PRN Reason: BACK PAIN Last Admin: 09/06/17 10:49 Dose: 1 mg Sodium Chloride (Normal Saline -) 1,000 mls @ 125 mls/hr IV ASDIR [facility] Last Admin: 09/06/17 11:01 Dose: 125 mls/hr Ertapenem 1 gm/ Sodium (Chloride) 50 mls @ 50 mls/hr IVPB DAILY [facility] PRN Reason: Protocol Methylnaltrexone [place] (Relistor -) 12 mg SQ DAILY [facility] Last Admin: 09/05/17 13:36 Dose: 12 mg Ondansetron HCl (Zofran Injection) 4 mg IVPUSH Q6H PRN PRN Reason: NAUSEA Ondansetron HCl (Zofran Injection) 4 mg IVPUSH Q6H PRN PRN Reason: NAUSEA AND/OR VOMITING Oxycodone HCl (Roxicodone -) 5 mg PO Q6H PRN PRN Reason: PAIN LEVEL 6-10 Last Admin: 09/06/17 02:58 Dose: 5 mg Promethazine HCl (Phenergan Injection -) 12.5 mg IVPUSH Q6H PRN PRN Reason: NAUSEA-FOR RESCUE AFTER 15 MIN - Objective Vital Signs: Vital Signs Temperature 98.1 F 09/06/17 10:36 Pulse Rate 82 09/06/17 10:36 Respiratory Rate 20 09/06/17 10:36 Blood Pressure 100/61 09/06/17 10:36 O2 Sat by Pulse Oximetry (%) 97 09/05/17 21:00 Constitutional: Yes: Calm, Mild Distress Cardiovascular: Yes: Regular Rate and Rhythm Respiratory: Yes: Regular, CTA Bilaterally Gastrointestinal: Yes: Normal Bowel Sounds, Soft Genitourinary: Yes: CVA Tenderness - Left Musculoskeletal: Yes: WNL Extremities: Yes: WNL Neurological: Yes: Alert, Oriented Psychiatric: Yes: Alert Labs: CBC, BMP 09/05/17 07:00 09/05/17 07:00 Assessment/Plan Problem List - Problems (1) Duplicated left renal collecting system Code(s): Q62.5 - DUPLICATION OF URETER (2) UTI (urinary tract infection) Code(s): N39.0 - URINARY TRACT INFECTION, SITE NOT SPECIFIED (3) Hydroureter on left Code(s): N13.4 - HYDROURETER (4) Bilateral nephrolithiasis Code(s): N20.0 - CALCULUS OF KIDNEY cx report noted plan will change abx to ertapenam stat cbc patient allergic to most of medications if cbc coming down then we might be able to use nitrofurantoin if she can tolerate it
[2017-09-06 12:46] LABS: HEMATOCRIT 40.3 % (32.4-45.2); MCH 28.8 pg (25.7-33.7); MCHC 32.3 g/dl (32.0-36.0); MEAN CELL VOLUME 89.1 fl (80-96); PLATELET COUNT 237 K/MM3 (134-434); RBC 4.53 M/mm3 (3.60-5.2); RDW 13.4 % (11.6-15.6); WHITE BLOOD COUNT 10.5 K/mm3 (4.0-10.0)
[2017-09-06] MEDS ORDERED: oxyCODONE HCL 5 MG TABLET PO PRN (13:04)
[2017-09-06 13:09] LABS: ANION GAP 12 (8-16); BLOOD UREA NITROGEN 8 mg/dL (7-18); CALCIUM 9.1 mg/dL (8.5-10.1); CHLORIDE 106 mmol/L (98-107); CO2 23 mmol/L (21-32); CREATININE 0.7 mg/dL (0.55-1.02); GLUCOSE,RANDOM 83 mg/dL (74-106); POTASSIUM 4.3 mmol/L (3.5-5.1); SODIUM 141 mmol/L (136-145)
--- NOTE | 2017-09-06 13:17 | DS ---
Physical Examination Vital Signs: Vital Signs Temperature 98.1 F 09/06/17 10:36 Pulse Rate 82 09/06/17 10:36 Respiratory Rate 20 09/06/17 10:36 Blood Pressure 100/61 09/06/17 10:36 O2 Sat by Pulse Oximetry (%) 97 09/05/17 21:00 Constitutional: Yes: Mild Distress Eyes: Yes: WNL HENT: Yes: WNL, Tonsillar Exudate Cardiovascular: Yes: WNL Respiratory: Yes: WNL Gastrointestinal: Yes: WNL Renal/: Yes: WNL Musculoskeletal: Yes: WNL Extremities: Yes: WNL Edema: No Peripheral Pulses WNL: Yes Integumentary: Yes: WNL Wound/Incision: Yes: Clean/Dry Neurological: Yes: WNL ...Motor Strength: WNL Psychiatric: Yes: WNL Labs: CBC, BMP 09/06/17 12:15 Discharge Summary Reason For Visit: PYELONEPHRITIS Current Active Problems Bilateral nephrolithiasis (Acute) Duplicated left renal collecting system (Acute) Hydroureter on left (Acute) Neurofibromatosis (Acute) Renal calculus, left (Acute) Renal calculus, right (Acute) Renal stone (Acute) Spinal arthritis (Acute) UTI (urinary tract infection) (Acute) Procedures: Principal: CYSTOSCOPY URETRAL STENTS Hospital Course: ADMITTED HYRONEPHROSIS, STENTS PLACED IV FLUIDS AND ABX GIVEN Condition: Fair - Instructions Diet, Activity, Other Instructions: INCREASE FLUIDS REG DIET SEE DR WELSH SATURDAY 9AM UROLOGY FOLLOW UP 1 WEEK Referrals: Hari Welsh [Primary Care Provider] - Disposition: HOME - Home Medications Comprehensive Discharge Medication List: Ambulatory Orders Albuterol Sulfate [Ventolin -] 2 mg PO TID 11/16/15 Oxycodone HCl/Acetaminophen [Percocet 10-325 mg Tablet] 1 each PO TID 10/24/16 Baclofen 10 mg PO DAILY 09/04/17
[2017-09-06] MEDS: NITROFURANTOIN MACROCRYSTAL 50 MG CAPSULE (FP) PO SCH ×2 (14:32→17:58)
[2017-09-06] MEDS: Methylnaltrexone Bromide 12 MG/0.6 ML KIT SQ SCH (14:35)
[2017-09-06] MEDS ORDERED: ERTAPENEM SODIUM 1 GM in SODIUM CHLORIDE 50 ML IVPB SCH (15:00)
[2017-09-06 15:30] VITALS: BP 120/66; PULSE 72; TEMP 97.6
== END 2017-09-06 20:17 | disposition home or self-care (01) | DRG 720 ==
LOC: JER 08:59 → OBSVTOIN 16:43 → JERBED 16:43 → J5S 21:26
PROVIDERS: ADMIT Family Medicine; ATTEND Family Medicine
PROC: 0T778DZ Dilation of Left Ureter with Intraluminal Device, Via Natural or Artificial Opening Endoscopic (ICD-10-PCS; principal; 2017-09-04 18:00)
PROC: BT1FZZZ Fluoroscopy of Left Kidney, Ureter and Bladder (ICD-10-PCS; 2017-09-04 18:00)
DX: A41.9 Sepsis, unspecified organism (principal); N13.6 Pyonephrosis; M46.80 Other specified inflammatory spondylopathies, site unspecified; Q85.09 Other neurofibromatosis; R00.0 Tachycardia, unspecified; D72.828 Other elevated white blood cell count; K21.9 Gastro-esophageal reflux disease without esophagitis; F41.8 Other specified anxiety disorders; F17.200 Nicotine dependence, unspecified, uncomplicated; J45.909 Unspecified asthma, uncomplicated; G43.809 Other migraine, not intractable, without status migrainosus; I95.89 Other hypotension; M54.9 Dorsalgia, unspecified; Q62.5 Duplication of ureter; N20.1 Calculus of ureter; Z88.0 Allergy status to penicillin
CPT/HCPCS: 36415; 74176; 76000-TC; 80048; 80053; 81003; 81015; 84703; 85025; 85027; 87040; 87086; 87186; 94760; 99283-25; J0475; J1644

== ENCOUNTER 2021-03-24 08:53 | Emergency (ER) | payer OTHER ==
[2021-03-24 09:15] VITALS: BP 112/77; PULSE 74; TEMP 98.1; BMI 25.6
== END 2021-03-24 09:53 | disposition home or self-care (01) ==
LOC: JER 08:53
DX: J06.9 Acute upper respiratory infection, unspecified (principal); J45.20 Mild intermittent asthma, uncomplicated; R05 Cough
CPT/HCPCS: 71046-TC-FY; 99283-25

== ENCOUNTER 2021-04-25 19:59 | Emergency (ER) | payer OTHER ==
[2021-04-25 20:08] VITALS: TEMP 97.7; BMI 25.6
[2021-04-25] MEDS ORDERED: ACETAMINOPHEN 1000 MG/100 ML BAG IVPB ONE (21:30)
[2021-04-25] MEDS ORDERED: ACETAMINOPHEN INJECTION 100 ML IVPB ONE (21:44)
[2021-04-25 21:46] LABS: BASO % 0.8 % (0-2.0); EOS % 0.8 % (0-4.5); HEMATOCRIT 38.8 % (32.4-45.2); HEMOGLOBIN 13.6 GM/dL (10.7-15.3); LYMPH % 32.5 % (8-40); MCH 30.6 pg (25.7-33.7); MEAN CELL VOLUME 87.3 fl (80-96); MEAN PLT VOLUME 8.3 fl (7.5-11.1); MONO % 8.3 % (3.8-10.2); NEUT % 57.6 % (42.8-82.8); PLATELET COUNT 216 10^3/uL (134-434); RBC 4.45 M/mm3 (3.60-5.2); WHITE BLOOD COUNT 10.8 K/mm3 (4.0-10.0)
[2021-04-25 22:06] LABS: BLOOD UREA NITROGEN 16.8 mg/dL (7-18); CALCIUM 9.5 mg/dL (8.5-10.1)
[2021-04-25 22:07] LABS: ALBUMIN 4.5 g/dl (3.4-5.0)
[2021-04-25 22:10] LABS: BILIRUBIN,TOTAL 0.7 mg/dL (0.2-1)
[2021-04-25 22:11] LABS: TOT PROT 7.3 g/dl (6.4-8.2)
[2021-04-25] MEDS ORDERED: SODIUM CHLORIDE 1,000 ML IV STA (23:52)
[2021-04-25] MEDS ORDERED: KETOROLAC TROMETHAMINE 30 MG/1 ML VIAL IVPUSH ONE (23:52)
[2021-04-25] MEDS ORDERED: KETOROLAC TROMETHAMINE 30 MG/1 ML VIAL ONE (23:58)
[2021-04-26 01:34] VITALS: BP 110/72; PULSE 73
== END 2021-04-26 01:34 | disposition home or self-care (01) ==
LOC: JER 19:59
PROC: 3E0333Z Introduction of Anti-inflammatory into Peripheral Vein, Percutaneous Approach (ICD-10-PCS; principal; 2021-04-25)
PROC: 3E0333Z Introduction of Anti-inflammatory into Peripheral Vein, Percutaneous Approach (ICD-10-PCS; 2021-04-25)
PROC: 3E0337Z Introduction of Electrolytic and Water Balance Substance into Peripheral Vein, Percutaneous Approach (ICD-10-PCS; 2021-04-25)
DX: M54.2 Cervicalgia (principal); G44.89 Other headache syndrome
CPT/HCPCS: 36415; 70450-TC; 70496-TC; 70498-TC; 80053; 84703; 85025; 99285-25; J0131; Q9967

== ENCOUNTER 2023-09-26 18:07 | Emergency (ER) | payer OTHER ==
[2023-09-26 18:33] VITALS: TEMP 97.8; BMI 29.9
[2023-09-26] MEDS ORDERED: LACTATED RINGERS SOLUTION 1000 ML INFUS.BAG IV ONE (19:24)
[2023-09-26] MEDS ORDERED: ONDANSETRON 4 MG/2 ML VIAL IVPUSH ONE (19:24)
[2023-09-26] MEDS ORDERED: ACETAMINOPHEN 1000 MG/100 ML BAG IVPB ONE (19:24)
[2023-09-26] MEDS ORDERED: MAG HYDROX/AL HYDROX/SIMETH 30 ML UNIT-DOSE CUP PO ONE (19:24)
[2023-09-26] MEDS ORDERED: FAMOTIDINE 20 MG/50 ML IVPB 20 MG/50 ML MG IVPB ONE ×2 (19:25→19:54)
[2023-09-26] MEDS ORDERED: ONDANSETRON 4 MG/2 ML VIAL ONE (19:42)
[2023-09-26] MEDS ORDERED: ACETAMINOPHEN INJECTION 100 ML IVPB ONE (19:54)
[2023-09-26 20:12] LABS: BASO % 0.2 % (0-2.0); EOS % 0.2 % (0-4.5); HEMATOCRIT 41.1 % (32.4-45.2); HEMOGLOBIN 14.2 GM/dL (10.7-15.3); LYMPH % 24.9 % (8-40); MCH 30.6 pg (25.7-33.7); MCHC 34.5 g/dl (32.0-36.0); MEAN CELL VOLUME 88.5 fl (80-96); MEAN PLT VOLUME 8.7 fl (7.5-11.1); MONO % 10.7 % (3.8-10.2); PLATELET COUNT 186 10^3/uL (134-434); RBC 4.64 M/mm3 (3.60-5.2); RDW 13.4 % (11.6-15.6)
[2023-09-26 20:33] LABS: POTASSIUM 3.9 mmol/L (3.5-5.1)
[2023-09-26 20:35] LABS: CALCIUM 10.1 mg/dL (8.5-10.1)
[2023-09-26 20:36] LABS: ALBUMIN 4.5 g/dl (3.4-5.0); BLOOD UREA NITROGEN 13.1 mg/dL (7-18)
[2023-09-26 20:39] LABS: CREATININE 0.8 mg/dL (0.55-1.3)
[2023-09-26 20:40] LABS: BILIRUBIN,TOTAL 0.9 mg/dL (0.2-1); TOT PROT 7.4 g/dl (6.4-8.2)
[2023-09-26 21:52] VITALS: BP 100/72; PULSE 72; RESP 19
== END 2023-09-26 22:06 | disposition home or self-care (01) ==
LOC: JER 18:07
PROC: 3E033GC Introduction of Other Therapeutic Substance into Peripheral Vein, Percutaneous Approach (ICD-10-PCS; principal; 2023-09-26)
PROC: 3E033GC Introduction of Other Therapeutic Substance into Peripheral Vein, Percutaneous Approach (ICD-10-PCS; 2023-09-26)
PROC: 3E033NZ Introduction of Analgesics, Hypnotics, Sedatives into Peripheral Vein, Percutaneous Approach (ICD-10-PCS; 2023-09-26)
DX: R11.2 Nausea with vomiting, unspecified (principal); R12 Heartburn; R10.13 Epigastric pain
CPT/HCPCS: 36415; 80053; 83690; 85025; 99284-25; J0131

== ENCOUNTER 2024-01-15 20:14 | Emergency (ER) | payer OTHER ==
[2024-01-15 20:36] VITALS: BP 124/85; PULSE 96; RESP 22; TEMP 98.4; BMI 33.3
[2024-01-15] MEDS ORDERED: SUCRALFATE 1 GM TABLET (FP) ONE (21:08)
[2024-01-15] MEDS ORDERED: MAG HYDROX/AL HYDROX/SIMETH 30 ML UNIT-DOSE CUP ONE (21:09)
[2024-01-15] MEDS ORDERED: FAMOTIDINE 20 MG/50 ML IVPB 20 MG/50 ML MG IVPB ONE (21:09)
[2024-01-15] MEDS: FAMOTIDINE 20 MG/50 ML IVPB 20 MG/50 ML MG IVPB ONE (21:28)
[2024-01-15] MEDS: SUCRALFATE 1 GM/10 ML UNIT DOSE CUPS PO ONE (21:28)
[2024-01-15] MEDS: LACTATED RINGERS SOLUTION 1000 ML INFUS.BAG IV ONE (21:28)
[2024-01-15] MEDS: MAG HYDROX/AL HYDROX/SIMETH 30 ML UNIT-DOSE CUP PO ONE (21:28)
[2024-01-15 21:34] LABS: BASO % 0.4 % (0-2.0); EOS % 0.1 % (0-4.5); HEMATOCRIT 38.7 % (32.4-45.2); LYMPH % 18.2 % (8-40); MCH 29.6 pg (25.7-33.7); MCHC 33.6 g/dl (32.0-36.0); MEAN CELL VOLUME 87.9 fl (80-96); MEAN PLT VOLUME 8.1 fl (7.5-11.1); MONO % 8.9 % (3.8-10.2); NEUT % 72.4 % (42.8-82.8); PLATELET COUNT 231 10^3/uL (134-434); RDW 13.8 % (11.6-15.6); WHITE BLOOD COUNT 12.3 K/mm3 (4.0-10.0)
[2024-01-15 21:50] LABS: POTASSIUM 3.8 mmol/L (3.5-5.1)
[2024-01-15 21:52] LABS: ALBUMIN 4.2 g/dl (3.4-5.0); BLOOD UREA NITROGEN 15.1 mg/dL (7-18); CALCIUM 9.4 mg/dL (8.5-10.1); MAGNESIUM 2.3 mg/dL (1.8-2.4)
[2024-01-15 21:55] LABS: CREATININE 0.7 mg/dL (0.55-1.3)
[2024-01-15 21:57] LABS: BILIRUBIN,TOTAL 0.6 mg/dL (0.2-1); TOT PROT 7.1 g/dl (6.4-8.2)
== END 2024-01-16 00:42 | disposition home or self-care (01) ==
LOC: JER 20:14
PROC: 3E033GC Introduction of Other Therapeutic Substance into Peripheral Vein, Percutaneous Approach (ICD-10-PCS; principal; 2024-01-15)
DX: K21.00 Gastro-esophageal reflux disease with esophagitis, without bleeding (principal); R11.2 Nausea with vomiting, unspecified; R10.9 Unspecified abdominal pain
CPT/HCPCS: 36415; 71046-TC-FY; 80053; 83690; 83735; 84703; 85025; 99284-25

== ENCOUNTER 2024-02-29 13:46 | Emergency (ER) | payer OTHER ==
[2024-02-29 14:00] VITALS: RESP 18; TEMP 98.5; BMI 33.3
[2024-02-29 15:36] LABS: EPI CELLS >36 /uL (0-25.1); HYALINE CASTS 1 /uL (0-3.1); PH,URINE 5.5 (5.0-8.0); URINE APPEARANCE CLEAR; URINE BACTERIA 338 /uL (0-1359); URINE BILIRUBIN NEGATIVE (NEGATIVE); URINE COLOR YELLOW; URINE GLUCOSE (UA) NEGATIVE (NEGATIVE); URINE KETONE TRACE (NEGATIVE); URINE LEUK ESTERASE 1+ (NEGATIVE); URINE NITRITE NEGATIVE (NEGATIVE); URINE PROTEIN TRACE (NEGATIVE); URINE RBC 12 /uL (0-23.9); URINE UROBILINOGEN 0.2 mg/dL (0.2-1.0); URINE WBC 57 /uL (0-25.8)
[2024-02-29 15:38] LABS: HCG,QUALITATIVE URINE Negative
[2024-02-29] MEDS: SODIUM CHLORIDE 1,000 ML IV STA (15:39)
[2024-02-29 15:42] LABS: BASO % 0.6 % (0-2.0); HEMATOCRIT 38.9 % (32.4-45.2); HEMOGLOBIN 12.7 GM/dL (10.7-15.3); LYMPH % 22.4 % (8-40); MCHC 32.8 g/dl (32.0-36.0); MEAN CELL VOLUME 88.4 fl (80-96); MEAN PLT VOLUME 7.9 fl (7.5-11.1); MONO % 12.3 % (3.8-10.2); NEUT % 63.7 % (42.8-82.8); PLATELET COUNT 233 10^3/uL (134-434); RDW 13.5 % (11.6-15.6); WHITE BLOOD COUNT 8.1 K/mm3 (4.0-10.0)
[2024-02-29 16:06] LABS: POTASSIUM 4.1 mmol/L (3.5-5.1)
[2024-02-29 16:08] LABS: CALCIUM 8.9 mg/dL (8.5-10.1)
[2024-02-29 16:09] LABS: ALBUMIN 3.5 g/dl (3.4-5.0); BLOOD UREA NITROGEN 22.5 mg/dL (7-18)
[2024-02-29 16:13] LABS: BILIRUBIN,TOTAL 0.2 mg/dL (0.2-1); TOT PROT 6.3 g/dl (6.4-8.2)
[2024-02-29 16:20] LABS: CREATININE 0.9 mg/dL (0.55-1.3)
[2024-02-29 17:33] VITALS: BP 104/67; PULSE 78
== END 2024-02-29 17:44 | disposition home or self-care (01) ==
LOC: JERFT 13:46
PROC: 3E0337Z Introduction of Electrolytic and Water Balance Substance into Peripheral Vein, Percutaneous Approach (ICD-10-PCS; principal; 2024-02-29)
DX: R05.9 Cough, unspecified (principal); R09.81 Nasal congestion; J06.9 Acute upper respiratory infection, unspecified; B34.9 Viral infection, unspecified; N28.1 Cyst of kidney, acquired; R19.7 Diarrhea, unspecified
CPT/HCPCS: 36415; 71046-TC-FY; 74176-TC; 80053; 81003; 83605; 83690; 84703; 85025; 99285-25

== ENCOUNTER 2024-04-07 16:46 | Emergency (ER) | payer OTHER ==
[2024-04-07 17:00] VITALS: BP 101/67; PULSE 87; RESP 20; TEMP 98.7; BMI 29.6
[2024-04-08 16:15] LABS: HIV INTERPRETATION NEGATIVE (NEGATIVE)
== END 2024-04-07 19:44 | disposition home or self-care (01) ==
LOC: JER 16:46
DX: R00.2 Palpitations (principal); R07.2 Precordial pain; R06.02 Shortness of breath; R51.9 Headache, unspecified; R11.0 Nausea; F41.9 Anxiety disorder, unspecified
CPT/HCPCS: 36415; 71046-TC-FY; 86803; 87389; 93005; 93010; 99285-25